=== PATIENT | female | born 1955 | race African-American/Black ===

== ENCOUNTER → 2017-03-19 | Outpatient (CLI) | payer MEDICARE, OTHER ==
[~2017-03-19] MED LIST: LANTUS100 U/M1 SQ; LISINOPRIL; METFORMIN PO
--- NOTE | ~2017-03-19 | CR63 ---
[facility] A Service of [facility] RADIOLOGY TEXT RESULTS PATIENT: BOWEN LEAL LOCATION: [facility] : 59 UNIT #: [id number] AGE: [address]: Toby Koch MD SEX: F ORDER DR: [id number] [facility] [address], [place] [address] [id number] O MR#: [id number] Acc #: [id number] NAME: BOWEN LEAL : 1955 SEX: F STUDY DATE/TIME: 03/19/2017 11:16 UNIT: [facility] ROOM: STUDY DESCRIPTION: CR Chest 2 View Attending Physician: Toby Koch M.D. Referring Physician: Toby Koch M.D. Ordering Physician: Tboy Koch M.D. Primary Care Physician: Toby Koch M.D. MEDICAL IMAGING REPORT This report is preliminary unless electronic signature is present EXAM Chest, 03/19/2017; [facility]. HISTORY 61-year-old woman posterior chest pain, short of air, high blood pressure current symptoms x1 week. COMPARISON Chest, 11/26/2013. FINDINGS PA and lateral chest views show mild stable cardiomegaly. Calcified left hilar nodes are stable. Bilateral lungs are expanded and clear. Generalized prominent thoracic marginal osteophytes noted. IMPRESSION 1. Stable cardiac enlargement. 2. Old healed granulomatous disease. 3. Advanced degenerative thoracic marginal osteophytosis. 4. No acute chest finding. Dictated by... Wiliam Hernandez M.D. THIS IS AN ELECTRONICALLY VERIFIED REPORT Wiliam Hernandez M.D. at 03/20/2017 7:13 AM LENNOX/ebonie TD: 03/19/2017 17:16 JOB #: [id number] MEDICAL IMAGING REPORT [facility] A Service [facility] RADIOLOGY TEXT RESULTS PATIENT: BOWEN LEAL LOCATION: [facility] : 59 UNIT #: [id number] AGE: [address]: Toby Koch MD SEX: F ORDER DR: Page 1 of 1 COPY
== END | disposition home or self-care (01) ==
LOC: CRAD 11:02
DX: R07.9 Chest pain, unspecified (principal); I51.7 Cardiomegaly; M25.78 Osteophyte, vertebrae; Z87.09 Personal history of other diseases of the respiratory system
CPT/HCPCS: 71020

== ENCOUNTER → 2017-04-01 | Outpatient (CLI) | payer MEDICARE, OTHER ==
--- NOTE | ~2017-04-01 | BD1 ---
[facility] A Service of [facility] RADIOLOGY TEXT RESULTS PATIENT: BOWEN LEAL LOCATION: [facility] : 59 UNIT #: [id number] AGE: [address]: Toby Koch MD SEX: F ORDER DR: [id number] [facility] [address] [place], [place] [address] [id number] O MR#: [id number] Acc #: [id number] NAME: BOWEN LEAL : 1955 SEX: F STUDY DATE/TIME: 04/01/2017 9:42 UNIT: [facility] ROOM: STUDY DESCRIPTION: BD Dexa Bone Dens 1+ Site Attending Physician: Toby Koch M.D. Referring Physician: Toyb Koch M.D. Ordering Physician: Toby Koch M.D. Primary Care Physician: Toby Koch M.D. MEDICAL IMAGING REPORT This report is preliminary unless electronic signature is present EXAM DEXA scan 04/01/2017 HISTORY Status post menopause with no hormone replacement therapy. Osteopenia. Family history of breast carcinoma in sister. Arthritis. Hypertension with blood pressure medication for 8 years. Family history of osteoporosis in sister. Smoking history. FINDINGS Bone mineral density in the lumbar spine from L1-L4 is 1.009 g/cm2 which is 1.3 standard deviations below the mean when compared to the young adult reference population which is characteristic of osteopenia. This is 0.3 standard deviations above the mean when compared to the age-matched population. Bone mineral density in the left femoral neck was 0.737 g/cm2 which is 1.5 standard deviations below the mean when compared to the young adult reference population which is characteristic of osteopenia. This is 0.5 standard deviations below the mean when compared to the age-matched population. IMPRESSION Bone mineral density in the lumbar spine and left hip characteristic of osteopenia. Dictated by... Harris Santana M.D. THIS IS AN ELECTRONICALLY VERIFIED REPORT Harris Santana M.D. at 04/02/2017 7:34 AM ANALI/sheridan STS. [facility] A Service of [facility] & [facility] RADIOLOGY TEXT RESULTS PATIENT: BOWEN LEAL LOCATION: [facility] : 59 UNIT #: [id number] AGE: [address]: Toby Koch MD SEX: F ORDER DR: TD: 04/01/2017 13:48 JOB #: [id number] MEDICAL IMAGING REPORT Page 1 of 1 COPY
== END | disposition home or self-care (01) ==
LOC: CWCC 09:22
DX: Z13.820 Encounter for screening for osteoporosis (principal); Z78.0 Asymptomatic menopausal state; M85.89 Other specified disorders of bone density and structure, multiple sites
CPT/HCPCS: 77080